=== PATIENT | female | born 1990 | race Caucasian/White ===

== ENCOUNTER 2019-02-07 09:37 | Inpatient (IN) | payer OTHER ==
[~2019-02-07] VITALS: Ht 162.6 cm; Wt 80.0 kg
[2019-02-07 11:07] LABS: BASOPHILS % (AUTO) 0.8 % (0.0-2.0); EOSINOPHILS % (AUTO) 5.2 % (1.0-6.0); HEMATOCRIT 35.3 % (36-46); HEMOGLOBIN 11.1 g/dL (12.0-16.0); LYMPHOCYTES # (AUTO) 1.3 K/uL (1.0-4.8); LYMPHOCYTES % (AUTO) 16.5 % (22.0-44.0); MEAN CORPUSCULAR HEMOGLOBIN 22.9 pg (26.0-34.0); MEAN CORPUSCULAR HGB CONC 31.5 G/dL (31.0-37.0); MEAN CORPUSCULAR VOLUME 73 fL (80-100); MONOCYTES # (AUTO) 0.5 K/uL (0.1-1.0); MONOCYTES % (AUTO) 5.9 % (2.0-9.0); NEUTROPHILS # (AUTO) 5.6 K/uL (1.8-7.7); NEUTROPHILS % (AUTO) 71.6 % (40.0-70.0); PLATELET COUNT (AUTO) 419 K/uL (150-450); RED BLOOD CELL COUNT(AUTO) 4.84 MIL/uL (4.00-5.20); RED CELL DISTRIBUTION WIDTH 14.9 % (11.5-14.5)
[2019-02-07 11:17] LABS: ANION GAP 9 mmol/L (8-16); CARBON DIOXIDE 27 mmol/L (22-29); CHLORIDE 99 mmol/L (98-107); CREATININE 0.68 mg/dL (0.60-1.30); GLOMERULAR FILTR. RATE CALC > 60 mL/min (>60); GLUCOSE,RANDOM 83 mg/dL (70-110); POTASSIUM 4.1 mmol/L (3.5-5.1); SODIUM SERUM 135 mmol/L (136-145); UREA NITROGEN, BLOOD 9 mg/dL (7-18)
[2019-02-07] MEDS ORDERED: SODIUM CHLORIDE 0.9% 2,000 ML IV ONE (11:30)
[2019-02-07] MEDS ORDERED: 0.9% SODIUM CHLORIDE 10 ML SYRINGE IVP PRN (11:30)
[2019-02-07] MEDS ORDERED: ACETAMINOPHEN 325 MG TABLET PO PRN (11:30)
[2019-02-07] MEDS ORDERED: LORazepam 2 MG/ML VIAL IVP ONE (11:30)
[2019-02-07] MEDS ORDERED: ONDANSETRON HCL 4 MG/2 ML VIAL IVP PRN (11:30)
[2019-02-07 11:37] LABS: ALANINE AMINOTRANSFERASE 10 U/L (12-78); ALBUMIN 3.3 g/dL (3.4-5.0); ALKALINE PHOSPHATASE 95 U/L (46-116); ASPARTATE AMINOTRANSFERASE 18 U/L (15-37); BILIRUBIN,TOTAL 0.4 mg/dL (0.1-1.0); HCG,QUANTITATIVE < 1 mIU/mL (0-6); TOTAL PROTEIN, SERUM 8.1 g/dL (6.4-8.2)
[2019-02-07 12:52] VITALS: BP 116/68
[2019-02-07] MEDS ORDERED: MAG HYDROX/AL HYDROX/SIMETH ES 30 ML SUSPENSION UDCUP PO PRN (15:15)
[2019-02-07] MEDS ORDERED: DICYCLOMINE HCL 10 MG CAPSULE PO PRN (15:15)
[2019-02-07] MEDS ORDERED: PETROLATUM,WHITE 28 GM JELLY TP PRN (15:15)
[2019-02-07] MEDS ORDERED: ONDANSETRON HCL 4 MG TABLET PO PRN (15:15)
[2019-02-07] MEDS ORDERED: IBUPROFEN 400 MG TABLET PO PRN (15:15)
[2019-02-07] MEDS ORDERED: DOCUSATE SODIUM 100 MG CAPSULE PO PRN (15:15)
[2019-02-07] MEDS ORDERED: CloNIDine HCL 0.1 MG TABLET PO PRN ×2 (15:15)
[2019-02-07] MEDS ORDERED: GuaiFENesin/D-METHORPHAN [SUGAR-FREE] 200-20MG/10 ML SYRUP UDCUP PO PRN (15:15)
[2019-02-07] MEDS ORDERED: LOPERAMIDE HCL 2 MG CAPSULE PO PRN ×2 (15:15)
[2019-02-07] MEDS ORDERED: METOCLOPRAMIDE HCL 5 MG/ML 2 ML VIAL IVP PRN (15:15)
[2019-02-07] MEDS ORDERED: MAGNESIUM HYDROXIDE SUSPENSION 30 ML UDCUP PO PRN (15:15)
[2019-02-07] MEDS ORDERED: ALBUTEROL SULFATE HFA 90 MCG/PUFF 8 GM INHALER IH PRN (15:15)
[2019-02-07] MEDS ORDERED: ACETAMINOPHEN/CODEINE 300-15 MG TABLET PO PRN (15:15)
[2019-02-07] MEDS ORDERED: MAGNESIUM SULFATE 2 GM, MVI, ADULT NO.1 WITH VIT K 10 ML, THIAMINE HCL 100 MG, FOLIC AC... IV ONE ×5 (15:30)
[2019-02-07 16:49] VITALS: BP 113/64
[2019-02-07 19:30] VITALS: BP 120/69
[2019-02-07 20:00] VITALS: BP 96/54
[2019-02-07] MEDS ORDERED: TEMAZEPAM 15 MG CAPSULE PO SCH (21:00)
[2019-02-07 22:30] VITALS: BP 96/54
[2019-02-08] VITALS (9 sets, daily range): BP systolic 104–131; BP diastolic 60–71
[2019-02-08 05:03] LABS: AMPHET/METH SCREEN,URINE POSITIVE (NEGATIVE); BARBITURATE SCREEN, URINE NEGATIVE (NEGATIVE); BENZODIAZEPINES SCREEN,URINE NEGATIVE (NEGATIVE); CANNABINOID SCREEN,URINE NEGATIVE (NEGATIVE); COCAINE SCREEN,URINE NEGATIVE (NEGATIVE); METHADONE SCREEN, URINE NEGATIVE (NEGATIVE); OPIATE SCREEN,URINE NEGATIVE (NEGATIVE); PHENCYCLIDINE SCREEN,URINE NEGATIVE (NEGATIVE)
[2019-02-08 07:13] LABS: BASOPHILS % (AUTO) 0.8 % (0.0-2.0); EOSINOPHILS % (AUTO) 9.4 % (1.0-6.0); HEMATOCRIT 33.5 % (36-46); HEMOGLOBIN 10.4 g/dL (12.0-16.0); LYMPHOCYTES # (AUTO) 1.4 K/uL (1.0-4.8); LYMPHOCYTES % (AUTO) 20.9 % (22.0-44.0); MEAN CORPUSCULAR HEMOGLOBIN 22.6 pg (26.0-34.0); MEAN CORPUSCULAR HGB CONC 31.2 G/dL (31.0-37.0); MEAN CORPUSCULAR VOLUME 73 fL (80-100); MONOCYTES # (AUTO) 0.6 K/uL (0.1-1.0); MONOCYTES % (AUTO) 9.2 % (2.0-9.0); NEUTROPHILS % (AUTO) 59.7 % (40.0-70.0); PLATELET COUNT (AUTO) 412 K/uL (150-450); RED BLOOD CELL COUNT(AUTO) 4.62 MIL/uL (4.00-5.20); RED CELL DISTRIBUTION WIDTH 14.9 % (11.5-14.5)
[2019-02-08 07:27] LABS: ALANINE AMINOTRANSFERASE 9 U/L (12-78); ALBUMIN 2.8 g/dL (3.4-5.0); ALKALINE PHOSPHATASE 81 U/L (46-116); ANION GAP 5 mmol/L (8-16); ASPARTATE AMINOTRANSFERASE 9 U/L (15-37); BILIRUBIN,TOTAL 0.3 mg/dL (0.1-1.0); CALCIUM, TOTAL 8.4 mg/dL (8.8-10.5); CARBON DIOXIDE 30 mmol/L (22-29); CHLORIDE 102 mmol/L (98-107); CREATININE 0.66 mg/dL (0.60-1.30); GLOMERULAR FILTR. RATE CALC > 60 mL/min (>60); GLUCOSE,RANDOM 102 mg/dL (70-110); POTASSIUM 3.7 mmol/L (3.5-5.1); SODIUM SERUM 137 mmol/L (136-145); TOTAL PROTEIN, SERUM 7.3 g/dL (6.4-8.2); UREA NITROGEN, BLOOD 9 mg/dL (7-18)
[2019-02-08] MEDS ORDERED: DiphenhydrAMINE HCL 25 MG CAPSULE PO PRN (10:30)
[2019-02-08] MEDS: DIVALPROEX SODIUM 500 MG DR TABLET PO SCH ×2 (12:11→20:05)
[2019-02-08] MEDS: SERTRALINE HCL 50 MG TABLET PO SCH (12:11)
[2019-02-08] MEDS: LORazepam 2 MG/ML VIAL IVP PRN (12:45)
[2019-02-08] MEDS ORDERED: ONDANSETRON HCL 4 MG/2 ML VIAL IVP PRN (13:00)
[2019-02-09 03:56] VITALS: BP 118/69
[2019-02-09 07:26] VITALS: BP 123/69
[2019-02-09] MEDS: SERTRALINE HCL 50 MG TABLET PO SCH ×3 (08:42→09:30)
[2019-02-09] MEDS: DIVALPROEX SODIUM 500 MG DR TABLET PO SCH ×2 (08:42→21:01)
[2019-02-09 11:35] VITALS: BP 113/70
[2019-02-09 15:25] VITALS: BP 112/63
[2019-02-09] MEDS: LORazepam 2 MG/ML VIAL IVP PRN (15:45)
[2019-02-09 19:44] VITALS: BP 128/77
[2019-02-10 00:57] VITALS: BP 102/56
[2019-02-10 05:31] VITALS: BP 100/54
[2019-02-10 07:25] VITALS: BP 117/73
[2019-02-10] MEDS: DIVALPROEX SODIUM 500 MG DR TABLET PO SCH (08:04)
[2019-02-10] MEDS: SERTRALINE HCL 50 MG TABLET PO SCH (08:04)
[2019-02-10] MEDS ORDERED: DIVA-78 PO (09:33)
[2019-02-10] MEDS ORDERED: SERT50TA12 PO (09:34)
[2019-02-10] MEDS ORDERED: LORazepam 1 MG TABLET PO ONE (15:45)
[2019-02-10 16:19] VITALS: BP 109/66
== END 2019-02-10 16:15 | DRG 885 ==
LOC: EMS 09:38 → 6S 12:11 → EMS 12:29 → 6S 12:35
PROVIDERS: ADMIT Internal Medicine; ATTEND Internal Medicine
DX: F31.32 Bipolar disorder, current episode depressed, moderate (principal); F11.23 Opioid dependence with withdrawal; E87.1 Hypo-osmolality and hyponatremia; D64.9 Anemia, unspecified; F17.210 Nicotine dependence, cigarettes, uncomplicated; F15.10 Other stimulant abuse, uncomplicated; F43.10 Post-traumatic stress disorder, unspecified; Z89.512 Acquired absence of left leg below knee; Z90.49 Acquired absence of other specified parts of digestive tract; Z89.612 Acquired absence of left leg above knee
CPT/HCPCS: 94760; 96365; 96375; G0480; J2060; J2405; J3411; J3475; J3490; J7030; Q0162